=== PATIENT | female | born 1955 | race Caucasian/White ===

== ENCOUNTER 2017-04-11 10:28 | Emergency (ER) | payer BC ==
[2017-04-11 10:30] VITALS: BP 160/80; PULSE 80; RESP 24; TEMP 98.3; O2SAT 100
[2017-04-11] MEDS ORDERED: PRIL20TA2 PO (11:54)
[2017-04-11] MEDS ORDERED: VENL37.5 PO (11:54)
[2017-04-11] MEDS ORDERED: SODIUM CHLOR 0.9% 1000 ML INJ 1,000 ML IV ONE (12:02)
[2017-04-11 12:03] LABS: MEAN CORPUSCULAR HGB CONC 36.1 % (32.0-36.0)
--- NOTE | 2017-04-11 12:11 | PD ---
HPI Chief Complaint: Complaint Time Seen by Provider: 12:09 Travel History International Travel<30 days: No Contact w/Intl Traveler<30days: No Traveled to known affect area: No History of Present Illness HPI Patient is a 61-year-old female presenting to [facility] in for evaluation of left lower quadrant abdominal pain, dysuria. Patient states she has a history of kidney stones, her last one was several months ago. She said 10 days of pain that started aching, she reports as an 8 out of 10. Denies any nausea, vomiting , fever, chills or chest pain, shortness of breath. She states the pain is consistent with the pain she's had in the past with kidney stones. She reports a past medical history significant for renal calculi, breast cancer, depression , GERD. Patient is visiting from out of town. PFSH Past Medical History Anxiety: Yes Depression: Yes Chemotherapy: Yes (10 YRS AGO) GERD: Yes Kidney Stones: Yes Tetanus Vaccination: > 5 Years ?: Not Ovarian Cysts: Yes Past Surgical History Gynecologic Surgery: Yes (breast) Social History Alcohol Use: No Tobacco Use: Yes Substance Use: No Allergies-Medications (Allergen,Severity, Reaction): Coded Allergies: No Known Allergies (Unverified , 04/11/17) Reported Meds & Prescriptions Reported Meds & Active Scripts Active Reported Prilosec (Omeprazole Magnesium) 20 Mg Tab 20 Mg PO DAILY Effexor (Venlafaxine HCl) 37.5 Mg Tab 37.5 Mg PO Q12H Review of Systems Except as stated in HPI: all other systems reviewed are Neg General / Constitutional: No: Fever, Chills HENT: No: Headaches Cardiovascular: No: Chest Pain or Discomfort Respiratory: No: Shortness of Breath Gastrointestinal: Positive: Abdominal Pain, No: Nausea, Vomiting, Diarrhea Genitourinary: Positive: Dysuria, Pelvic Pain Physical Exam Narrative GENERAL: Well-developed, well-nourished alert female. Resting comfortably in no acute distress. SKIN: Warm and dry. HEAD: Atraumatic. Normocephalic. EYES: Pupils equal and round. No scleral icterus. No injection or drainage. ENT: No nasal bleeding or discharge. Mucous membranes pink and moist. NECK: Trachea midline. No JVD. CARDIOVASCULAR: Regular rate and rhythm. RESPIRATORY: No accessory muscle use. Clear to auscultation. Breath sounds equal bilaterally. GASTROINTESTINAL: Abdomen soft, atraumatic to palpation left lower quadrant, no guarding, nondistended. Hepatic and splenic margins not palpable. Negative CVAT bilaterally MUSCULOSKELETAL: Extremities without clubbing, cyanosis, or edema. No obvious deformities. NEUROLOGICAL: Awake and alert. No obvious cranial nerve deficits. Motor grossly within normal limits. Five out of 5 muscle strength in the arms and legs. Normal speech. PSYCHIATRIC: Appropriate mood and affect; insight and judgment normal. Data Data Last Documented VS Vital Signs Date Time Temp Pulse Resp B/P Pulse Ox O2 Delivery O2 Flow Rate FiO2 04/11/17 10:30 98.3 80 24 160/80 100 Room Air Orders Complete Blood Count With Diff (04/11/17 12:02) Comprehensive Metabolic Panel (04/11/17 12:02) Urinalysis - C+S If Indicated (04/11/17 12:02) Ct Abd/Pel W/O Iv Contrast (04/11/17 12:02) Ecg Monitoring (04/11/17 12:02) Iv Access Insert/Monitor (04/11/17 12:02) Ketorolac Inj (Toradol Inj) (04/11/17 12:15) Sodium Chloride 0.9% Flush (Ns Flush) (04/11/17 12:15) Sodium Chlor 0.9% 1000 Ml Inj (Ns 1000 M (04/11/17 12:02) Urine Culture (04/11/17 12:10) Labs Laboratory Tests Test 04/11/17 12:10 White Blood Count 9.0 TH/MM3 Red Blood Count 4.47 MIL/MM3 Hemoglobin 13.9 GM/DL Hematocrit 38.4 % Mean Corpuscular Volume 85.8 FL Mean Corpuscular Hemoglobin 31.0 PG Mean Corpuscular Hemoglobin 36.1 % Concent Red Cell Distribution Width 12.9 % Platelet Count 201 TH/MM3 Mean Platelet Volume 7.5 FL Neutrophils (%) (Auto) 59.7 % Lymphocytes (%) (Auto) 28.8 % Monocytes (%) (Auto) 10.2 % Eosinophils (%) (Auto) 1.0 % Basophils (%) (Auto) 0.3 % Neutrophils # (Auto) 5.3 TH/MM3 Lymphocytes # (Auto) 2.6 TH/MM3 Monocytes # (Auto) 0.9 TH/MM3 Eosinophils # (Auto) 0.1 TH/MM3 Basophils # (Auto) 0.0 TH/MM3 CBC Comment AUTO DIFF Differential Comment AUTO DIFF CONFIRMED Urine Color YELLOW Urine Turbidity CLEAR Urine pH 5.5 Urine Specific [place] 1.006 Urine Protein NEG mg/dL Urine Glucose (UA) NEG mg/dL Urine Ketones NEG mg/dL Urine Occult Blood MOD Urine Nitrite NEG Urine Bilirubin NEG Urine Urobilinogen LESS THAN 2.0 MG/DL Urine Leukocyte Esterase SMALL Urine RBC 13 /hpf Urine WBC 9 /hpf Urine Squamous Epithelial <1 /hpf Cells Urine Bacteria OCC /hpf Microscopic Urinalysis Comment CULTURE INDICATED Sodium Level 140 MEQ/L Potassium Level 4.0 MEQ/L Chloride Level 106 MEQ/L Carbon Dioxide Level 24.6 MEQ/L Anion Gap 9 MEQ/L Blood Urea Nitrogen 20 MG/DL Creatinine 0.72 MG/DL Estimat Glomerular Filtration 82 ML/MIN Rate Random Glucose 94 MG/DL Calcium Level 9.3 MG/DL Total Bilirubin 0.6 MG/DL Aspartate Amino Transf 20 U/L (AST/SGOT) Alanine Aminotransferase 29 U/L (ALT/SGPT) Alkaline Phosphatase 68 U/L Total Protein 7.7 GM/DL Albumin 4.3 GM/DL MDM Medical Decision Making Medical Screen Exam Complete: Yes Emergency Medical Condition: Yes Interpretation(s) Laboratory Tests Test 04/11/17 12:10 White Blood Count 9.0 TH/MM3 Red Blood Count 4.47 MIL/MM3 Hemoglobin 13.9 GM/DL Hematocrit 38.4 % Mean Corpuscular Volume 85.8 FL Mean Corpuscular Hemoglobin 31.0 PG Mean Corpuscular Hemoglobin 36.1 % Concent Red Cell Distribution Width 12.9 % Platelet Count 201 TH/MM3 Mean Platelet Volume 7.5 FL Neutrophils (%) (Auto) 59.7 % Lymphocytes (%) (Auto) 28.8 % Monocytes (%) (Auto) 10.2 % Eosinophils (%) (Auto) 1.0 % Basophils (%) (Auto) 0.3 % Neutrophils # (Auto) 5.3 TH/MM3 Lymphocytes # (Auto) 2.6 TH/MM3 Monocytes # (Auto) 0.9 TH/MM3 Eosinophils # (Auto) 0.1 TH/MM3 Basophils # (Auto) 0.0 TH/MM3 CBC Comment AUTO DIFF Differential Comment AUTO DIFF CONFIRMED Urine Color YELLOW Urine Turbidity CLEAR Urine pH 5.5 Urine Specific [place] 1.006 Urine Protein NEG mg/dL Urine Glucose (UA) NEG mg/dL Urine Ketones NEG mg/dL Urine Occult Blood MOD Urine Nitrite NEG Urine Bilirubin NEG Urine Urobilinogen LESS THAN 2.0 MG/DL Urine Leukocyte Esterase SMALL Urine RBC 13 /hpf Urine WBC 9 /hpf Urine Squamous Epithelial <1 /hpf Cells Urine Bacteria OCC /hpf Microscopic Urinalysis Comment CULTURE INDICATED Sodium Level 140 MEQ/L Potassium Level 4.0 MEQ/L Chloride Level 106 MEQ/L Carbon Dioxide Level 24.6 MEQ/L Anion Gap 9 MEQ/L Blood Urea Nitrogen 20 MG/DL Creatinine 0.72 MG/DL Estimat Glomerular Filtration 82 ML/MIN Rate Random Glucose 94 MG/DL Calcium Level 9.3 MG/DL Total Bilirubin 0.6 MG/DL Aspartate Amino Transf 20 U/L (AST/SGOT) Alanine Aminotransferase 29 U/L (ALT/SGPT) Alkaline Phosphatase 68 U/L Total Protein 7.7 GM/DL Albumin 4.3 GM/DL Vital Signs Date Time Temp Pulse Resp B/P Pulse Ox O2 Delivery O2 Flow Rate FiO2 04/11/17 10:30 98.3 80 24 160/80 100 Room Air Differential Diagnosis UTI versus diverticulitis versus colitis versus renal calculi versus other Narrative Course Patient is a 61-year-old female presenting to emergency department evaluation of urinary symptoms and left lower quadrant abdominal pain. Patient states history of kidney stones and the pain she is experiencing today is consistent with prior. Her vital signs stable. Labs and imaging ordered and pending. CT scan abdomen and pelvis shows a 4.4 mm stone in the left UVJ with slight hydronephrosis. CBC is unremarkable, urinalysis with moderate occult blood, 13 rbc's, 9 WBCs, small leukocyte esterase. Reflex culture pending. Chemistry with a BUN of 20 otherwise unremarkable. Patient's vital signs are stable, she is afebrile, she is well-appearing. Patient will be discharged home on Keflex, Flomax and pain medications. Urged to increase fluid intake, she was advised to return to emergency department immediately for any new or worsening symptoms. Patient should follow-up with her primary doctor or urologist within the next few days. Patient verbalized understanding of instructions. Patient stable for discharge. Diagnosis Primary Impression: Renal calculus, left Referrals: Primary Care Physician Urologist 3 days Patient Instructions: General Instructions, Kidney Stones (ED), Narcotic given in the ED Additional Instructions: Increase fluid intake Follow-up with your urologist and primary doctor Take medications as directed Do not drive or operate machinery while taking narcotic pain medication Return to emergency department for any new or worsening symptoms Med/Other Pt SpecificInfo: Prescription(s) given Scripts Tramadol 50 Mg Tab50 Mg PO Q4H PRN (PAIN) #12 TAB Ref 0 Prov:Lalitha Chopra MD 04/11/17 Cephalexin (Keflex)500 Mg [id number] Mg PO Q12H 7 Days Ref 0 Prov:Angelica Arciniega 04/11/17 Tamsulosin 0.4 Mg Cap0.4 Mg PO HS #10 CAP Ref 0 Prov:Angelica Arciniega 04/11/17 Disposition: 01 DISCHARGE HOME Condition: Stable Angelica Arciniega Apr 11, 2017 12:11
[2017-04-11] MEDS ORDERED: SODIUM CHLORIDE 0.9% FLUSH 10 ML FLUSH IVF PRN (12:15)
[2017-04-11] MEDS ORDERED: KETOROLAC TROMETHAMINE 30 MG/ML (IVP) VIAL IVP ONE (12:15)
[2017-04-11 12:24] LABS: AUTOMATED NEUTROPHIL # 5.3 TH/MM3 (1.8-7.7); BASOPHIL % 0.3 % (0.0-2.0); EOSINOPHIL # 0.1 TH/MM3 (0-0.4); HEMATOCRIT 38.4 % (35.0-46.0); LYMPH % 28.8 % (9.0-44.0); LYMPHOCYTE # 2.6 TH/MM3 (1.0-4.8); MEAN CELL VOLUME 85.8 FL (80.0-100.0); MONO % 10.2 % (0.0-8.0); NEUT % 59.7 % (16.0-70.0); PLATELET COUNT 201 TH/MM3 (150-450); RED BLOOD COUNT 4.47 MIL/MM3 (4.00-5.30); RED CELL DISTRIBUTION WIDTH 12.9 % (11.6-17.2)
[2017-04-11 12:26] LABS: HEMO FLAGS AUTO DIFF
[2017-04-11 12:27] LABS: BACTERIA, URINE OCC /hpf; BLOOD, URINE MOD (NEG); COMMENT (UR) CULTURE INDICATED; CULTURE IF INDICATED CULTURE INDICATED; GLUCOSE,URINE NEG (NEG); KETONE, URINE NEG (NEG); NITRITE,URINE NEG (NEG); PH, URINE 5.5 (5.0-8.5); SQUAMOUS EPITHELIAL CELL URINE <1 /hpf (0-5); URINE COLOR YELLOW (YELLW/STRAW)
[2017-04-11 12:43] LABS: ALT (GPT) 29 U/L (10-53); AST (GOT) 20 U/L (15-37); BICARBONATE 24.6 MEQ/L (21.0-32.0); BLOOD UREA NITROGEN 20 MG/DL (7-18); CHLORIDE 106 MEQ/L (98-107); GLOMERULAR FILTRATION RATE 82 ML/MIN (>89); SODIUM (NA) 140 MEQ/L (136-145)
[2017-04-11 12:44] LABS: ANION GAP 9 MEQ/L (5-15)
[2017-04-11 12:46] LABS: ALKALINE PHOSPHATASE 68 U/L (45-117); TOTAL BILIRUBIN ADULT 0.6 MG/DL (0.2-1.0)
[2017-04-11 12:51] LABS: SCAN/DIFF AUTO DIFF CONFIRMED
--- NOTE | 2017-04-11 13:15 | RADRPT ---
EXAM DATE/TIME: 04/11/2017 12:44 [place] COMPARISON: No previous studies available for comparison. INDICATIONS : Left flank pain. ORAL CONTRAST: No oral contrast ingested. RADIATION DOSE: 13.25 CTDIvol (mGy) MEDICAL HISTORY : Renal calculi. SURGICAL HISTORY : None. ENCOUNTER: Initial ACUITY: 1 day PAIN SCALE: 6/10 LOCATION: Left flank TECHNIQUE: Volumetric scanning of the abdomen and pelvis was performed. Using automated exposure control and adjustment of the mA and/or kV according to patient size, radiation dose was kept as low as reasonably achievable to obtain optimal diagnostic quality images. DICOM format image data is av ailable electronically for review and comparison. FINDINGS: CT Abdomen: The liver is fatty without focal lesions or technique. There is slight hydronephrosis in the left kidney due to an approximate 4.4 mm left UVJ stone. There are no stones in the kidneys. The spleen, pancreas, right kidney, adrenals are unremarkable. There is no evidence for any appreciable p athological adenopathy, free fluid, or bowel obstruction. CT pelvis: There is no evidence for mass, abscess formation, or any significant adenopathy within the pelvis. CONCLUSION: 1. Slight hydronephrosis in the left kidney due to an approximate 4.4 mm left UVJ stone. 2. Fatty liver. Ronan Grimes MD on April 11, 2017 at 13:02 Board Certified Radiologist. This report was verified electronically.
[2017-04-11] MEDS ORDERED: CEPH-460 PO (13:25)
[2017-04-11] MEDS ORDERED: TAMS0.4C4 PO (13:25)
[2017-04-11] MEDS ORDERED: TRAM50TA PO (13:26)
[2017-04-11] MEDS ORDERED: ACETAMINOPHEN/HYDROcodone 325 MG/5 MG TAB PO ONE (13:30)
[2017-04-11 13:39] VITALS: BP 142/87
== END 2017-04-11 13:40 | disposition home or self-care (01) ==
LOC: NEPD 10:28
DX: N20.0 Calculus of kidney (principal)
CPT/HCPCS: 74176; 80053; 81001; 85025; 87086; 96361; 96374; 99284; J1885; J7030